=== PATIENT | male | born 1965 | race Asian ===

== ENCOUNTER → 2016-09-27 | Outpatient (CLI) | payer BC ==
[~2016-09-27] MED LIST: MULT-506 PO; OMEG10007 PO
--- NOTE | 2016-09-27 09:57 | DIAGNOSTIC IMAGING REPORT ---
ABDOMINAL ULTRASOUND, RIGHT UPPER QUADRANT HISTORY: Chronic hepatitis B. COMPARISON: Right upper quadrant ultrasound September 19, 2009. FINDINGS: Liver echogenicity is slightly increased. The liver is not cirrhotic by sonography. 2 hepatic cysts are noted, the largest is which is a 1.3 cm left hepatic lobe cyst. There is no biliary ductal dilatation. No gallstones are identified. There is no gallbladder wall thickening. The pancreatic body is normal. The pancreatic head and tail are slightly obscured. There is no right hydronephrosis. There is a 4 mm right renal cyst. IMPRESSION: 1. Slight increase in hepatic echogenicity. The liver is not overtly cirrhotic by sonography. 2. Two hepatic cysts. No solid hepatic lesions identified by sonography. 2. No gallstones or biliary ductal dilatation. Electronically signed by: Boby Sanders M.D. 09/27/2016 9:56 AM Dictated Date/Time: 09/27/2016 9:53 AM
== END | disposition home or self-care (01) ==
LOC: C.ULTRBC 08:46
PROVIDERS: ATTEND Internal Medicine
DX: B18.1 Chronic viral hepatitis B without delta-agent (principal); N28.1 Cyst of kidney, acquired

== ENCOUNTER → 2016-10-15 | Outpatient (CLI) | payer BC ==
[2016-10-15 11:04] LABS: BASO % 0.3 %; BASO ABS # 0.02 K/uL (0-0.2); COMPLETE YES; EOS % 1.6 %; HEMATOCRIT 50.2 % (42-52); IG% 0.3 %; LYMPH % 34.5 %; LYMPH ABS # 2.31 K/uL (1.2-3.4); MEAN CELL VOLUME 92.4 fL (80-100); MEAN CORPUSCULAR HEMOGLOBIN 31.7 pg (25-34); MEAN CORPUSCULAR HGB CONC 34.3 g/dl (32-36); MEAN PLATELET VOLUME 9.9 fL (7.4-10.4); NEUT % 56.3 %; PLATELET COUNT 162 K/uL (130-400); RED BLOOD COUNT 5.43 M/uL (4.7-6.1)
[2016-10-15 11:20] LABS: ALT/SGPT 47 U/L (12-78); BLOOD UREA NITROGEN 15 mg/dl (7-18); BUN/CREATININE RATIO 15.4 (10-20); CALCIUM 8.7 mg/dl (8.5-10.1); CARBON DIOXIDE 27 mmol/L (21-32); CHLORIDE 106 mmol/L (98-107); CHOLESTEROL 144 mg/dl (0-200); CREATININE 0.99 mg/dl (0.60-1.40); GLUCOSE 87 mg/dl (70-99); POTASSIUM 4.1 mmol/L (3.5-5.1); SODIUM 143 mmol/L (136-145); TRIGLYCERIDES 104 mg/dl (0-150); VERY LOW DENSITY LIPOPROT CALC 21 mg/dl
[2016-10-15 11:24] LABS: ALB/GLOB RATIO 1.1 (0.9-2); ALKALINE PHOSPHATASE 69 U/L (45-117); AST/SGOT 30 U/L (15-37); CHOLESTEROL/HDL RATIO 2.8; HDL CHOLESTEROL 51 mg/dl; LDL CHOLESTEROL CALCULATED 72 mg/dl; PROSTATE SPECIFIC ANTIGEN 0.587 ng/ml (0.000-4.000)
[2016-10-16 09:02] LABS: AFP TUMOR MARKER SERUM 2.4 NG/ML (<6.1)
== END | disposition home or self-care (01) ==
LOC: C.LABBC 08:30
PROVIDERS: ATTEND Internal Medicine
DX: B18.1 Chronic viral hepatitis B without delta-agent (principal); Z12.5 Encounter for screening for malignant neoplasm of prostate; E78.5 Hyperlipidemia, unspecified

== ENCOUNTER → 2016-11-29 | Day surgery (SDC) | payer BC ==
[2016-11-22 09:10] VITALS: Ht 162.6 cm; Wt 62.3 kg
[~2016-11-29] VITALS: Ht 162.6 cm; Wt 62.3 kg
[~2016-11-29] MED LIST changes: +LIDOCAINE HCL 2% 2 ML VIAL (20MG/ML) ONE; +MIDAZOLAM HCL 1 MG/ML 2ML VIAL ONE; +ONDANSETRON INJ 2 MG/ML 2 ML VIAL ONE; +PROPOFOL IV EMULSION 10 MG/ML 20 ML VIAL IV ONE; +SODIUM CHLORIDE 0.9% 500ML 500 ML IV ONE
[2016-11-29 08:14] VITALS: TEMP 36.6
--- NOTE | 2016-11-29 08:51 | Endo History and Physical ---
History & Physical Date of Service: Nov 29, 2016. Chief Complaint: screening Referring Physician: Dr. Joe Ellison History of Present Illness 51 yo male presents for screening colonoscopy. Past Surgical History Hx Cardiac Surgery: No Hx Internal Defibrillator: No Hx Pacemaker: No Hx Abdominal Surgery: No Hx of Implantable Prosthesis: No Hx Post-Op Nausea and Vomiting: No Hx Cancer Surgery: No Hx Thoracic Surgery: No Hx Orthopedic: No Hx Urinary Tract Surgery: No Social History Smoking Status: Never Smoker Hx Substance Use: No Hx Alcohol Use: Yes (OCCASIONALLY) Allergies Coded Allergies: NO KNOWN DRUG ALLERGIES (Verified Allergy, Unknown, ., 11/22/16) Current Medications Reported Home Medications Medications Dose Route/Sig Max Daily Dose Days Date Category [place]-3 (Fish Oil) 1 Ea Cap 1 Cap PO DAILY AT LUNCH 11/22/16 Reported Multivitamin (Multivitamins) Tab 1 Tab PO DAILY AT LUNCH 11/22/16 Reported Vital Signs Weight (Kilograms): 62.27 Height (Feet): 5 Height (Inches): 4 Date Time Temp Pulse Resp B/P Pulse Ox O2 Delivery O2 Flow Rate FiO2 11/29/16 08:14 36.6 101 20 138/91 100 Room Air Physical Exam General Appearance: WD/WN, no apparent distress Respiratory/Chest: Auscultation: breath sounds normal Cardiovascular: Heart Auscultation: RRR Abdomen: Bowel Sounds: normal Inspection & Palpation: soft, non-distended, no tenderness, guarding & rebound Assessment and Plan Assessment: 51 yo male presents for screening colonoscopy. Plan: Proceed with colonoscopy.
--- NOTE | 2016-11-29 09:06 | Discharge Instructions ---
Endoscopy Patient Instructions Date / Procedure(s) Performed Nov 29, 2016. Colonoscopy Allergy Information Coded Allergies: NO KNOWN DRUG ALLERGIES (Verified Allergy, Unknown, ., 11/22/16) Discharge Date / Findings Nov 29, 2016. Sigmoid colon polyp Medication Instructions Stopped Medication(s): stopped MVI and fish oil Friday OK to resume all medications today as prescribed Reported Home Medications Medications Dose Route/Sig Max Daily Dose Days Date Category [place]-3 (Fish Oil) 1 Ea Cap 1 Cap PO DAILY AT LUNCH 11/22/16 Reported Multivitamin (Multivitamins) Tab 1 Tab PO DAILY AT LUNCH 11/22/16 Reported Provider Instructions Activity Restrictions - No exercising or heavy lifting for 24 hours. - Do not drink alcohol the day of the procedure. - Do not drive a car or operate machinery until the day after the procedure. - Do not make any important decisions or sign important papers in 24 hours after the procedure. Following Day: - Return to full activity which may include returning to work/school. Diet Start your diet with liquids and light foods (jello, soup, juice, toast). Then eat your usual diet if not nauseated. Treatment For Common After Affects For mild abdominal pain, bloating, or excessive gas: - Rest - Eat lightly - Lie on right side Follow-Up Information Follow-up with Dr. Joe Ellison as scheduled Anesthesia Information What You Should Know You have had a procedure that required some medicine to reduce anxiety and discomfort. This treatment is called moderate sedation. After receiving the treatment, you may be sleepy, but you will be able to breathe on your own. The effects of the treatment may last for several hours. Follow these instructions along with Activity/Diet recommendations noted above: * Do NOT do anything where dizziness or clumsiness would be dangerous. * Rest quietly at home today, then you can be up and about tomorrow. * Have a responsible person stay with you the rest of today. * You may have had an I.V. today. If so, you may take the dressing off later today. Recommendations Call your doctor if: * Trouble breathing * Continuous vomiting for more than 24 hours * Temperature above 101 degrees * Severe abdominal pain or bloating * Pain not relieved by pain medicine ordered * There is increased drainage or redness from any incision * A large amount of rectal bleeding greater than 2-3 tablespoons. (If you had a polyp/s removed or have hemorrhoids, a small amount of blood - from the rectum is to be expected.) * You have any unanswered questions or concerns. IN THE EVENT OF A SERIOUS EMERGENCY, GO TO THE NEAREST EMERGENCY ROOM Your discharge instructions were prepared by provider Ignacio Cordon. Patient Instructions Signature Page Joselo Flores Patient (or Guardian) Signature/Date: I have read and understand the instructions given to me by my caregivers. Caregiver/RN/Doctor Signature/Date: The above-named patient and/or guardian has received patient instructions on this date. + Original Patient Signature Page (only) stays with chart. Please make copy for patient.
--- NOTE | 2016-11-29 09:11 | GI REPORT ---
Procedure Date: 11/29/2016 8:34 AM Procedure: Colonoscopy Indications: Screening for colorectal malignant neoplasm Medicines: Monitored Anesthesia Care Complications: No immediate complications. Estimated Blood Loss: Estimated blood loss: none. Procedure: Pre-Anesthesia Assessment: - Prior to the procedure, a History and Physical was performed, and patient medications and allergies were reviewed. The patient's tolerance of previous anesthesia was also reviewed. The risks and benefits of the procedure and the sedation options and risks were discussed with the patient. All questions were answered, and informed consent was obtained. Prior Anticoagulants: The patient has taken no previous anticoagulant or antiplatelet agents. ASA Grade Assessment: II - A patient with mild systemic disease. After reviewing the risks and benefits, the patient was deemed in satisfactory condition to undergo the procedure. After I obtained informed consent, the scope was passed under direct vision. Throughout the procedure, the patient's blood pressure, pulse, and oxygen saturations were monitored continuously. The scope was introduced through the anus and advanced to the terminal ileum. The colonoscopy was performed without difficulty. The patient tolerated the procedure well. The quality of the bowel preparation was good. The terminal ileum, ileocecal valve, appendiceal orifice, and rectum were photographed. Findings: A 8 mm polyp was found in the sigmoid colon. The polyp was sessile. The polyp was removed with a hot snare. Resection and retrieval were complete. Impression: - One 8 mm polyp in the sigmoid colon, removed with a hot snare. Resected and retrieved. Recommendation: - Resume previous diet. - Continue present medications. - Repeat colonoscopy for surveillance based on pathology results. - Return to primary care physician as previously scheduled. Ignacio Cordon, DO 11/29/2016 9:11:26 AM This report has been signed electronically. Note Initiated On: 11/29/2016 8:34 AM I attest to the content of the Intraoperative Record and orders documented therein, exceptions below
--- NOTE | 2016-11-29 09:31 | Anesthesiology Progress Note ---
Anesthesia Post Op Note Date & Time Nov 29, 2016 at 09:30 Vital Signs Pain Intensity: 0 Vital Signs Past 12 Hours Date Time Temp Pulse Resp B/P Pulse Ox O2 Delivery O2 Flow Rate FiO2 11/29/16 09:25 87 20 96/63 96 Room Air 11/29/16 09:10 83 20 101/64 97 Nasal Cannula 2 11/29/16 08:14 36.6 101 20 138/91 100 Room Air Notes Mental Status: alert / awake / arousable, participated in evaluation Pt Amnestic to Procedure: Yes Nausea / Vomiting: adequately controlled Pain: adequately controlled Airway Patency, RR, SpO2: stable & adequate BP & HR: stable & adequate Hydration State: stable & adequate Anesthetic Complications: no major complications apparent Pt doing well.
[2016-11-29 09:40] VITALS: BP 100/74; PULSE 82; O2SAT 97
== END | disposition home or self-care (01) ==
LOC: C.GI 07:54
PROVIDERS: ATTEND Internal Medicine
DX: Z12.11 Encounter for screening for malignant neoplasm of colon (principal); D12.5 Benign neoplasm of sigmoid colon

== ENCOUNTER 2017-11-08 19:00 | Emergency (ER) | payer BC ==
[~2017-11-08] VITALS: Ht 162.6 cm; Wt 64.3 kg
[~2017-11-08 19:00] MED LIST changes: -LIDOCAINE HCL 2% 2 ML VIAL (20MG/ML) ONE; -MIDAZOLAM HCL 1 MG/ML 2ML VIAL ONE; -ONDANSETRON INJ 2 MG/ML 2 ML VIAL ONE; -PROPOFOL IV EMULSION 10 MG/ML 20 ML VIAL IV ONE; -SODIUM CHLORIDE 0.9% 500ML 500 ML IV ONE
[2017-11-08 19:06] VITALS: TEMP 37; Ht 162.6 cm; Wt 64.3 kg
[2017-11-08 19:22] VITALS: O2SAT 96
--- NOTE | 2017-11-08 19:40 | DIAGNOSTIC IMAGING REPORT ---
CHEST ONE VIEW PORTABLE HISTORY: 52 years-old Male CHEST PAIN acute atypical chest pain COMPARISON: None available TECHNIQUE: Portable AP view of the chest FINDINGS: Cardiomediastinal and hilar silhouettes are within normal limits. No pneumothorax, pleural effusion, focal airspace consolidation or overt pulmonary edema. Bones of the chest appear grossly intact. IMPRESSION: No acute process. The above report was generated using voice recognition software. It may contain grammatical, syntax or spelling errors. Electronically signed by: Zana Hernandes M.D. 11/08/2017 7:38 PM Dictated Date/Time: 11/08/2017 7:37 PM
[2017-11-08 20:12] LABS: BASO % 0.1 %; BASO ABS # 0.01 K/uL (0-0.2); EOS % 1.4 %; IG# 0.04 K/uL (0.00-0.02); LYMPH % 23.9 %; LYMPH ABS # 1.67 K/uL (1.2-3.4); MEAN CELL VOLUME 93.7 fL (80-100); MEAN CORPUSCULAR HEMOGLOBIN 32.4 pg (25-34); MEAN CORPUSCULAR HGB CONC 34.6 g/dl (32-36); MEAN PLATELET VOLUME 10.6 fL (7.4-10.4); MONO ABS # 0.56 K/uL (0.11-0.59); NEUT ABS # 4.62 K/uL (1.4-6.5); PLATELET COUNT 123 K/uL (130-400); RED CELL DISTRIBUTION WIDTH CV 12.6 % (11.5-14.5); RED CELL DISTRIBUTION WIDTH SD 43.4 fL (36.4-46.3)
[2017-11-08 20:22] LABS: PTT PATIENT 25.6 SECONDS (21.0-31.0)
--- NOTE | 2017-11-08 20:30 | EMERGENCY ROOM VISIT NOTE ---
History Report prepared by Sharmila: Lefty Smith Under the Supervision of: Dr. Fadi Maldonado M.D. First contact with patient: 19:15 Chief Complaint: CARDIAC ASSESSMENT Stated Complaint: CHEST PAIN History of Present Illness The patient is a 52 year old male who presents to the Emergency Room with complaints of a worsening left-sided chest pain episode that started earlier this afternoon around 3 and a half hours ago. He states that for the past month and a half, he has had episodes of similar left-sided chest pain that completely goes away when the episodes are not occurring. The patient says that during these episodes, he gets left shoulder pain and left arm pain as well. He notes that the pain usually occurred when he was tired in the evening and in the morning he would be pain-free, so he did not feel the need to be seen by a doctor. He states that when he exerts himself or exercises over the past month he has not been getting any chest pain, and the episodes are completely random. The patient states that the pain is on the inside of his chest. He notes that exertion or deep breathing does not change the pain, but changing position has worsened the pain in the past. He says that this afternoon's episode was worse because he has had feelings of weakness and an increased temperature in the 99' s. The patient adds that his blood pressure has been elevated this afternoon. He notes that position has not been changing the pain today. The patient has not taken any medications today. Pt denies LOC, headache, chills, diaphoresis, visual changes, tearing pain radiating to the back, personal history or family history of aneurysm or pulmonary embolism, uncontrolled hypertension, breathing difficulties, leg swelling, coagulation abnormalities, prolonged travel, recent surgery or immobilization, nausea, vomiting, abdominal pain, melena, hematochezia, urinary symptoms, numbness, lymphadenopathy, rash, or other complaints. Source of History: patient, spouse/significant other Onset: 3 and a half hours ago Position: chest (left) Quality: other (pain) Timing: other (persistent) Associated Symptoms: + fevers (increased temperature in 99s), + weakness Note: Associated symptoms: Elevated blood pressure. Left shoulder pain, left arm pain. Review of Systems See HPI for pertinent positives and negatives. A total of ten systems were reviewed and were otherwise negative. Past Medical & Surgical Medical Problems: (1) Intermittent left-sided chest pain Family History Cancer Hypertension Social History Smoking Status: Never Smoker Alcohol Use: occasionally Drug Use: none Marital Status: Housing Status: lives with family Occupation Status: employed Current/Historical Medications Scheduled Fish Oil ([place]-3), 1 CAP PO DAILY AT LUNCH Multivitamin (Multivitamin), 1 TAB PO DAILY AT LUNCH Allergies Coded Allergies: NO KNOWN DRUG ALLERGIES (Verified Allergy, Unknown, ., 11/22/16) Physical Exam Vital Signs Date Time Temp Pulse Resp B/P (MAP) Pulse Ox O2 Delivery O2 Flow Rate FiO2 11/09/17 00:29 93 136/88 96 Room Air 11/08/17 23:06 95 11/08/17 22:42 106 136/88 94 Room Air 11/08/17 20:49 97 19 156/105 94 Room Air 11/08/17 19:29 105 11/08/17 19:24 97 Room Air 11/08/17 19:22 96 Room Air 11/08/17 19:06 37.0 105 18 162/98 97 Room Air Physical Exam GENERAL: Awake, alert, well-appearing, in no distress HENT: Normocephalic, atraumatic. Oropharynx unremarkable. EYES: Normal conjunctiva. Sclera non-icteric. NECK: Supple. No nuchal rigidity. FROM. No masses. RESPIRATORY: Clear to auscultation. No wheezes. CARDIAC: Tachycardic rate. Normal rhythm. No murmurs. No rubs. Extremities warm and well perfused. Pulses equal. No JVD. GI: Soft, non-distended. No tenderness to palpation. No rebound or guarding. No masses. RECTAL: Deferred. MUSCULOSKELETAL: Atraumatic. Chest examination reveals no tenderness. The back is symmetrical on inspection without obvious abnormality. There is no CVA tenderness to palpation. No joint edema. LOWER EXTREMITIES: Calves are equal size bilaterally and non-tender. No edema. No discoloration. NEURO: Normal sensorium. No sensory or motor deficits noted. SKIN: No rash or jaundice noted. Medical Decision & Procedures ER Provider Diagnostic Interpretation: Radiology results as stated below per my review and radiologist interpretation: CHEST ONE VIEW PORTABLE HISTORY: 52 years-old Male CHEST PAIN acute atypical chest pain COMPARISON: None available TECHNIQUE: Portable AP view of the chest FINDINGS: Cardiomediastinal and hilar silhouettes are within normal limits. No pneumothorax, pleural effusion, focal airspace consolidation or overt pulmonary edema. Bones of the chest appear grossly intact. IMPRESSION: No acute process. The above report was generated using voice recognition software. It may contain grammatical, syntax or spelling errors. Electronically signed by: Zana Hernandes M.D. 11/08/2017 7:38 PM Dictated Date/Time: 11/08/2017 7:37 PM (CHEST FOR PE) ANGIO WITH CT DOSE: 294.68 mGy.cm HISTORY: 52 years-old Male presents with acute atypical left-sided chest pain and elevated d-dimer level TECHNIQUE: Multiple CTA images of the chest were obtained after the intravenous administration of 79 ml Optiray 320. Coronal and sagittal MIPS were obtained from the axial data set and were submitted for review. A dose lowering technique was utilized adhering to the principles of ALARA. COMPARISON: Chest radiograph of same day. FINDINGS: CTA: Heart is normal in size without pericardial effusion. Thoracic aorta is normal in course and caliber without aneurysm or dissection. Imaged great vessels appear patent. The pulmonary arterial tree is opacified to level of the segmental branches and demonstrates no focal filling defects to suggest pulmonary thromboembolic disease. CT CHEST: No dominant thyroid nodule. No pathologic adenopathy of the chest identified. There is no pneumothorax or pleural effusion. Mild dependent subsegmental bibasilar atelectasis. Indeterminate 3 mm nodule of the right lower lobe, image 56 series 4. Central airways appear patent. Imaged upper abdominal structures are unremarkable. 6 mm low attenuating lesion of the subserosal right hepatic lobe is too small to characterize and may reflect a hepatic cyst. Soft tissues are unremarkable. Bones appear intact. IMPRESSION: 1. No acute intrathoracic abnormality identified, specifically no acute aortic pathology or evidence of pulmonary thromboembolic disease. 2. No lobar airspace consolidation or pathologic adenopathy. The above report was generated using voice recognition software. It may contain grammatical, syntax or spelling errors. Electronically signed by: Zana Hernandes M.D. 11/08/2017 10:10 PM Dictated Date/Time: 11/08/2017 10:04 PM Laboratory Results 11/08/17 20:00 Red Blood Count 5.55, Mean Corpuscular Volume 93.7, Mean Corpuscular Hemoglobin 32.4, Mean Corpuscular Hemoglobin Concent 34.6, Mean Platelet Volume 10.6, Neutrophils (%) (Auto) 66.0, Lymphocytes (%) (Auto) 23.9, Monocytes (%) (Auto) 8.0, Eosinophils (%) (Auto) 1.4, Basophils (%) (Auto) 0.1, Neutrophils # (Auto) 4.62, Lymphocytes # (Auto) 1.67, Monocytes # (Auto) 0.56, Eosinophils # (Auto) 0.10, Basophils # (Auto) 0.01 11/08/17 20:00 Test 11/08/17 20:00 11/08/17 21:05 11/09/17 00:28 White Blood Count 7.00 K/uL (4.8-10.8) Red Blood Count 5.55 M/uL (4.7-6.1) Hemoglobin 18.0 g/dL (14.0-18.0) Hematocrit 52.0 % (42-52) Mean Corpuscular Volume 93.7 fL (80-100) Mean Corpuscular Hemoglobin 32.4 pg (25-34) Mean Corpuscular Hemoglobin Concent 34.6 g/dl (32-36) Platelet Count 123 K/uL (130-400) Mean Platelet Volume 10.6 fL (7.4-10.4) Neutrophils (%) (Auto) 66.0 % Lymphocytes (%) (Auto) 23.9 % Monocytes (%) (Auto) 8.0 % Eosinophils (%) (Auto) 1.4 % Basophils (%) (Auto) 0.1 % Neutrophils # (Auto) 4.62 K/uL (1.4-6.5) Lymphocytes # (Auto) 1.67 K/uL (1.2-3.4) Monocytes # (Auto) 0.56 K/uL (0.11-0.59) Eosinophils # (Auto) 0.10 K/uL (0-0.5) Basophils # (Auto) 0.01 K/uL (0-0.2) RDW Standard Deviation 43.4 fL (36.4-46.3) RDW Coefficient of Variation 12.6 % (11.5-14.5) Immature Granulocyte % (Auto) 0.6 % Immature Granulocyte # (Auto) 0.04 K/uL (0.00-0.02) Erythrocyte Sedimentation Rate 2 mm/hr (0-14) Prothrombin Time 10.2 SECONDS (9.0-12.0) Prothromb Time International Ratio 1.0 (0.9-1.1) Activated Partial Thromboplast Time 25.6 SECONDS (21.0-31.0) Partial Thromboplastin Ratio 1.0 D-Dimer 520 ug/L FEU (0-500) Anion Gap 6.0 mmol/L (3-11) Est Creatinine Clear Calc Drug Dose 69.4 ml/min Estimated GFR () 96.1 Estimated GFR (Non- 82.9 BUN/Creatinine Ratio 12.2 (10-20) Calcium Level 8.9 mg/dl (8.5-10.1) Total Bilirubin 0.4 mg/dl (0.2-1) Alanine Aminotransferase (ALT/SGPT) 51 U/L (12-78) Alkaline Phosphatase 95 U/L (45-117) Creatine Kinase MB 0.7 ng/ml (0.5-3.6) Creatine Kinase MB Ratio (0-3.0) Total Protein 7.8 gm/dl (6.4-8.2) Albumin 4.0 gm/dl (3.4-5.0) Lipase 241 U/L (73-393) Direct Bilirubin mg/dl (0-0.2) Chemistry Specimen Hemolysis Troponin I < 0.015 ng/ml (0-0.045) Laboratory results reviewed by me ECG Per My Interpretation Indication: chest pain Rate (beats per minute): 102 Rhythm: sinus tachycardia Findings: no acute ischemic change, no ectopy, other (incomplete RBBB, no pericarditis) Comparison ECG Date: no prior available ED Course 1922: The patient was evaluated in room A9B. A complete history and physical exam was performed. 2299: I reevaluated the patient and he is completely pain free. Medical Decision Triage Nursing notes reviewed. The patient's presentation and history were concerning for chest pain. Etiologies such as cardiac ischemia, aortic dissection, pulmonary embolism, pneumonia, pneumothorax, musculoskeletal, infections, gastrointestinal, Pericarditis, myocarditis, as well as others were entertained. The patient was evaluated. He was borderline tachycardic. ECG did not reveal any acute ischemic change or signs of pericarditis. The patient had blood work performed. Chest x-ray was negative. CBC and chemistry panel were unremarkable. The patient had a negative troponin. His d-dimer was borderline. CT PE study was performed and was negative. The patient had a repeat troponin and this too was negative. This was done many hours after his onset of pain, almost 8. He had no delta. He has had nonexertional chest pain. His discomfort is very atypical. When the patient exercises he does not get any chest pain. He has had this going on and off for the last month and a half. He was given a dose of aspirin. I believe that he needs further follow- up as an outpatient. The patient feels comfortable with this plan. He will contact his primary physician the day after tomorrow. By the evaluation outlined above other emergent etiologies such as those listed in the differential, as well as others, were deemed relatively unlikely. The patient was educated about the findings as listed above. All questions were answered and the patient was pleased with the treatment. Return instructions were outlined and the patient was discharged in stable condition. The patient was referred to his PCP for follow-up for a recheck of the current condition. Medication Reconcilliation Current Medication List: was personally reviewed by me Blood Pressure Screening Patient's blood pressure: Elevated blood pressure Blood pressure disposition: Referred to PCP Impression Primary Impression: Left sided chest pain Scribe Attestation The scribe's documentation has been prepared under my direction and personally reviewed by me in its entirety. I confirm that the note above accurately reflects all work, treatment, procedures, and medical decision making performed by me. Departure Information Dispostion Home / Self-Care Referrals Joe Ellison M.D. (PCP) Patient Instructions My [facility] Additional Instructions CHEST PAIN INSTRUCTIONS: Take a baby aspirin daily until directed otherwise by your primary doctor. Acetaminophen(Tylenol) may be used for fever or pain. Use 1000mg every six hours as needed. Avoid using more than 4000mg in a 24 hour period. Rest and drink plenty of fluids as tolerated. Continue current medications. Avoid strenuous activities and anything that worsens your pain. Resume normal activities once your symptoms resolve. Return to the ER immediately for worsening or persistent chest pain, abdominal pain, vomiting, fevers, chest pains, difficulty breathing, worsening of your condition, or as needed. Follow up with your primary physician in 2 days for a recheck of your current condition discuss a stress test due to the chest pain.
[2017-11-08 20:40] LABS: ALKALINE PHOSPHATASE 95 U/L (45-117); ALT/SGPT 51 U/L (12-78); BLOOD UREA NITROGEN 12 mg/dl (7-18); CALCIUM 8.9 mg/dl (8.5-10.1); CARBON DIOXIDE 27 mmol/L (21-32); CKMB 0.7 ng/ml (0.5-3.6); CREATININE 1.02 mg/dl (0.60-1.40); GLUCOSE 140 mg/dl (70-99); LIPASE 241 U/L (73-393); SODIUM 139 mmol/L (136-145); TOTAL PROTEIN 7.8 gm/dl (6.4-8.2)
[2017-11-08 21:40] LABS: AST/SGOT 32 U/L (15-37); POTASSIUM 3.7 mmol/L (3.5-5.1)
[2017-11-08] MEDS ORDERED: OPTIRAY 320 IV PRN (21:45)
--- NOTE | 2017-11-08 22:11 | DIAGNOSTIC IMAGING REPORT ---
(CHEST FOR PE) ANGIO WITH CT DOSE: 294.68 mGy.cm HISTORY: 52 years-old Male presents with acute atypical left-sided chest pain and elevated d-dimer level TECHNIQUE: Multiple CTA images of the chest were obtained after the intravenous administration of 79 ml Optiray 320. Coronal and sagittal MIPS were obtained from the axial data set and were submitted for review. A dose lowering technique was utilized adhering to the principles of ALARA. COMPARISON: Chest radiograph of same day. FINDINGS: CTA: Heart is normal in size without pericardial effusion. Thoracic aorta is normal in course and caliber without aneurysm or dissection. Imaged great vessels appear patent. The pulmonary arterial tree is opacified to level of the segmental branches and demonstrates no focal filling defects to suggest pulmonary thromboembolic disease. CT CHEST: No dominant thyroid nodule. No pathologic adenopathy of the chest identified. There is no pneumothorax or pleural effusion. Mild dependent subsegmental bibasilar atelectasis. Indeterminate 3 mm nodule of the right lower lobe, image 56 series 4. Central airways appear patent. Imaged upper abdominal structures are unremarkable. 6 mm low attenuating lesion of the subserosal right hepatic lobe is too small to characterize and may reflect a hepatic cyst. Soft tissues are unremarkable. Bones appear intact. IMPRESSION: 1. No acute intrathoracic abnormality identified, specifically no acute aortic pathology or evidence of pulmonary thromboembolic disease. 2. No lobar airspace consolidation or pathologic adenopathy. The above report was generated using voice recognition software. It may contain grammatical, syntax or spelling errors. Electronically signed by: Zana Hernandes M.D. 11/08/2017 10:10 PM Dictated Date/Time: 11/08/2017 10:04 PM
[2017-11-09] MEDS ORDERED: ASPIRIN 81 MG CHEW PO STA (01:09)
[2017-11-09 01:28] VITALS: BP 136/88; PULSE 89; O2SAT 95
== END 2017-11-09 01:29 | disposition home or self-care (01) ==
LOC: C.EDB 19:01 → C.EDA 11-09 01:29
DX: R07.9 Chest pain, unspecified (principal); R03.0 Elevated blood-pressure reading, without diagnosis of hypertension; Z82.49 Family history of ischemic heart disease and other diseases of the circulatory system

== ENCOUNTER → 2018-03-24 | Outpatient (CLI) | payer BC ==
[2018-03-24 10:38] LABS: HEMATOCRIT 51.9 % (42-52); HEMOGLOBIN 17.4 g/dL (14.0-18.0); MEAN CELL VOLUME 94.5 fL (80-100); MEAN CORPUSCULAR HEMOGLOBIN 31.7 pg (25-34); MEAN CORPUSCULAR HGB CONC 33.5 g/dl (32-36); MEAN PLATELET VOLUME 10.6 fL (7.4-10.4); PLATELET COUNT 159 K/uL (130-400); RED CELL DISTRIBUTION WIDTH CV 12.5 % (11.5-14.5); RED CELL DISTRIBUTION WIDTH SD 43.1 fL (36.4-46.3); WHITE BLOOD COUNT 5.75 K/uL (4.8-10.8)
[2018-03-24 10:56] LABS: ALT/SGPT 39 U/L (12-78); AST/SGOT 29 U/L (15-37); BLOOD UREA NITROGEN 15 mg/dl (7-18); CALCIUM 8.7 mg/dl (8.5-10.1); CARBON DIOXIDE 28 mmol/L (21-32); CHOLESTEROL 120 mg/dl (0-200); CREATININE 0.98 mg/dl (0.60-1.40); GLUCOSE 84 mg/dl (70-99); LDL CHOLESTEROL CALCULATED 53 mg/dl; POTASSIUM 3.7 mmol/L (3.5-5.1); SODIUM 141 mmol/L (136-145)
== END | disposition home or self-care (01) ==
LOC: C.LABBC 08:01
PROVIDERS: ATTEND Internal Medicine
DX: E78.5 Hyperlipidemia, unspecified (principal); Z12.5 Encounter for screening for malignant neoplasm of prostate; B18.1 Chronic viral hepatitis B without delta-agent; R07.89 Other chest pain